=== PATIENT | male | born 1975 | race Caucasian/White ===

== ENCOUNTER 2020-03-13 08:00 | Outpatient (CLI) | payer OTHER ==
--- NOTE | 2020-03-13 10:48 | XRAY Report ---
PROCEDURE: Chest 2 View X-Ray INDICATIONS: CHRONIC COUGH TECHNIQUE: 2 view(s) of the chest. COMPARISON: None. FINDINGS: Surgical changes and devices: None. Lungs and pleura: No pleural effusions or pneumothorax. Lungs are clear. Mediastinum: Mediastinal contours are normal. Heart size is normal. Bones and chest wall: No suspicious bony abnormalities. Soft tissues appear unremarkable. IMPRESSION: No acute cardiopulmonary process demonstrated radiographically. Reviewed by: Eduar Purdy MD on 03/13/2020 10:47 AM PDT Approved by: Eduar Purdy MD on 03/13/2020 10:47 AM PDT Station ID: [id number]
[2020-03-13 15:10] LABS: BASOPHILS # (AUTO) 0.1 10^3/uL (0.0-0.1); EOSINOPHILS # (AUTO) 0.2 10^3/uL (0.0-0.7); EOSINOPHILS % (AUTO) 4.2 %; LYMPHOCYTES # (AUTO) 1.5 10^3/uL (1.5-3.5); LYMPHOCYTES % (AUTO) 28.8 %; MEAN CORPUSCULAR HEMOGLOBIN 32.1 pg (27.0-31.0); MEAN CORPUSCULAR VOLUME 97.2 fL (80.0-94.0); MEAN PLATELET VOLUME 10.7 fL (7.4-11.4); MONOCYTES # (AUTO) 0.5 10^3/uL (0.0-1.0); MONOCYTES % (AUTO) 10.2 %; NEUTROPHILS # (AUTO) 2.9 10^3/uL (1.5-6.6); NEUTROPHILS % (AUTO) 55.6 %; PLT - PLATELET COUNT 267 10^3/uL (130-450); RED BLOOD COUNT 4.68 10^6/uL (4.70-6.10); RED CELL DISTRIBUTION WIDTH 13.8 % (12.0-15.0); WHITE BLOOD COUNT 5.2 x10^3/uL (4.8-10.8)
== END 2020-03-13 23:59 | disposition home or self-care (01) ==
LOC: DI.S 08:00
PROVIDERS: ATTEND Physician Assistant Medical
DX: Z01.84 Encounter for antibody response examination (principal); R05 Cough
CPT/HCPCS: 36415; 71046; 85025; 86769

== ENCOUNTER 2020-05-07 12:26 | Outpatient (CLI) | payer OTHER ==
[2020-05-07 16:29] LABS: CHOL/HDL RATIO 3.3 (<5.0); CHOLESTEROL 187 mg/dL; HDL CHOLESTEROL 56 mg/dL; LDL CHOLESTEROL,CALCULATED 88 mg/dL; LDL/HDL RATIO 1.6 (<3.6); VLDL CHOLESTEROL 43 mg/dL
== END 2020-05-07 12:27 | disposition home or self-care (01) ==
LOC: LAB.S 12:26
PROVIDERS: ATTEND Physician Assistant
DX: E03.9 Hypothyroidism, unspecified (principal); E78.5 Hyperlipidemia, unspecified
CPT/HCPCS: 36415; 80061; 83721; 84443

== ENCOUNTER 2021-04-11 10:18 | Outpatient (CLI) | payer OTHER ==
[2021-04-11 15:16] LABS: ALBUMIN 4.7 g/dL (3.2-5.5); ALBUMIN/GLOBULIN RATIO 1.5 (1.0-2.2); BILIRUBIN,TOTAL 0.9 mg/dL (0.2-1.0); CALCIUM 9.6 mg/dL (8.5-10.3); POTASSIUM 4.3 mmol/L (3.5-5.0); TOTAL PROTEIN 7.8 g/dL (6.7-8.2)
== END 2021-04-11 23:59 | disposition home or self-care (01) ==
LOC: LAB.S 10:18
DX: E03.9 Hypothyroidism, unspecified (principal); Z79.899 Other long term (current) drug therapy; M94.0 Chondrocostal junction syndrome [Tietze]; E78.5 Hyperlipidemia, unspecified; R05 Cough
CPT/HCPCS: 36415; 80053

== ENCOUNTER 2022-07-02 13:32 | Outpatient (CLI) | payer OTHER ==
[2022-07-02 20:10] LABS: ALBUMIN 4.3 g/dL (3.2-5.5); ALBUMIN/GLOBULIN RATIO 1.5 (1.0-2.2); ALKALINE PHOSPHATASE 42 IU/L (42-121); ALT ALANINE AMINOTRANSFERASE 31 IU/L (10-60); AST ASPARTATE AMINOTRANSFERASE 19 IU/L (10-42); BILIRUBIN,TOTAL 0.6 mg/dL (0.2-1.0); BUN - BLOOD UREA NITROGEN 15 mg/dL (6-20); CALCIUM 9.4 mg/dL (8.5-10.3); CARBON DIOXIDE - CO2 28 mmol/L (21-32); CHLORIDE 103 mmol/L (101-111); CHOL/HDL RATIO 3.4 (<5.0); CHOLESTEROL 166 mg/dL; CREATININE 1.1 mg/dL (0.6-1.2); GFR - MDRD 71 (>89); GLUCOSE 89 mg/dL (70-100); HDL CHOLESTEROL 49 mg/dL; LDL CHOLESTEROL,CALCULATED 101 mg/dL; LDL/HDL RATIO 2.1 (<3.6); POTASSIUM 4.2 mmol/L (3.5-5.0); SODIUM 139 mmol/L (135-145); TOTAL PROTEIN 7.2 g/dL (6.7-8.2); TRIGLYCERIDES 78 mg/dL; VLDL CHOLESTEROL 16 mg/dL
[2022-07-02 20:19] LABS: THYROID STIMULATING HORMONE 0.86 uIU/mL (0.34-5.60)
== END 2022-07-02 13:33 | disposition home or self-care (01) ==
LOC: LAB.S 13:32
PROVIDERS: ATTEND Registered Nurse
DX: E78.5 Hyperlipidemia, unspecified (principal); E03.9 Hypothyroidism, unspecified; Z79.899 Other long term (current) drug therapy
CPT/HCPCS: 36415; 80053; 80061; 83721; 84443

== ENCOUNTER 2022-08-07 13:52 | Outpatient (CLI) | payer OTHER ==
--- NOTE | 2022-08-07 13:09 | XRAY Report ---
PROCEDURE: Hand 3 View LT INDICATIONS: LEFT HAND LACERATION TECHNIQUE: 3 views of the hand(s) acquired. COMPARISON: None FINDINGS: Bones: No fractures or dislocations. No suspicious bony lesions. Soft tissues: No suspicious soft tissue calcifications. No radiopaque foreign body. No soft tissue g as. IMPRESSION: No evidence acute bony abnormality of the left hand. No radiopaque foreign body. Reviewed by: Casey Iraheta MD on 08/07/2022 1:08 PM [facility] Approved by: Casey Iraheta MD on 08/07/2022 1:08 PM [facility] Station ID: [id number]
== END 2022-08-07 13:53 | disposition home or self-care (01) ==
LOC: DI.WOS 13:52
PROVIDERS: ATTEND Orthopaedic Surgery
DX: S61.213A Laceration without foreign body of left middle finger without damage to nail, initial encounter (principal); S61.211A Laceration without foreign body of left index finger without damage to nail, initial encounter

== ENCOUNTER 2024-03-05 11:20 | Outpatient (CLI) | payer OTHER | END 2024-03-05 23:59 | disposition critical access hospital (66) | LOC: EMS 11:20 | DX: S91.311A Laceration without foreign body, right foot, initial encounter (principal); S90.812A Abrasion, left foot, initial encounter; V23.49XA Other motorcycle driver injured in collision with car, pick-up truck or van in traffic accident, initial encounter; Y92.414 Local residential or business street as the place of occurrence of the external cause | CPT/HCPCS: A0425; A0429 ==

== ENCOUNTER 2024-03-05 12:03 | Day surgery (SDC) | payer OTHER ==
[2024-03-05] MEDS ORDERED: LIDOCAINE 1%-EPI 1:100000 20 ML MDV SUBQ STA (12:08)
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
[2024-03-05 12:15] LABS: BASOPHILS # (AUTO) 0.1 10^3/uL (0.0-0.1); BASOPHILS % (AUTO) 0.6 %; EOSINOPHILS # (AUTO) 0.2 10^3/uL (0.0-0.7); EOSINOPHILS % (AUTO) 2.4 %; HCT - HEMATOCRIT 38.9 % (42.0-52.0); HGB - HEMOGLOBIN 13.4 g/dL (14.0-18.0); LYMPHOCYTES # (AUTO) 1.8 10^3/uL (1.5-3.5); LYMPHOCYTES % (AUTO) 20.3 %; MEAN CORPUSCULAR HEMOGLOBIN 32.8 pg (27.0-31.0); MEAN CORPUSCULAR HGB CONC 34.4 g/dL (32.0-36.0); MEAN CORPUSCULAR VOLUME 95.3 fL (80.0-94.0); MEAN PLATELET VOLUME 9.9 fL (7.4-11.4); MONOCYTES # (AUTO) 0.6 10^3/uL (0.0-1.0); MONOCYTES % (AUTO) 6.6 %; NEUTROPHILS # (AUTO) 6.2 10^3/uL (1.5-6.6); NEUTROPHILS % (AUTO) 69.5 %; PLT - PLATELET COUNT 247 10^3/uL (130-450); RED BLOOD COUNT 4.08 10^6/uL (4.70-6.10); RED CELL DISTRIBUTION WIDTH 13.2 % (12.0-15.0); WHITE BLOOD COUNT 8.9 x10^3/uL (4.8-10.8)
[2024-03-05] MEDS: ceFAZolin 1 GM VIAL IVP STA (12:24)
[2024-03-05 12:33] LABS: INR 1.1 (0.8-1.2); PT - PROTHROMBIN TIME 11.7 secs (9.9-12.6)
[2024-03-05 12:36] LABS: ALBUMIN 4.5 g/dL (3.2-5.5); ALBUMIN/GLOBULIN RATIO 1.8 (1.0-2.2); BILIRUBIN,TOTAL 0.6 mg/dL (0.2-1.0); CALCIUM 9.5 mg/dL (8.5-10.3); CREATININE 1.3 mg/dL (0.6-1.3)
--- NOTE | 2024-03-05 12:42 | XRAY Report ---
PROCEDURE: Foot 3+V BL INDICATIONS: B foot inj TECHNIQUE: 3 views of the foot were acquired. COMPARISON: None. FINDINGS: Bones: Oblique fracture involving right first metatarsal shaft is seen with slight displacement at fr acture site. No gross acute left foot fracture or dislocation is noted. No suspicious bony lesions. Soft tissues: Soft tissue laceration involving plantar and medial aspect of right midfoot is seen. No radiopaque foreign bodies. IMPRESSION: 1. Laceration involving plantar and medial aspect of right midfoot with subcutaneous emphysema. No ra diopaque foreign bodies. 2. Acute slightly displaced fracture involving right first metatarsal shaft. 3. No gross acute left foot fracture or dislocation. Reviewed by: Francisco Dyer MD on 03/05/2024 12:40 PM PDT Approved by: Francisco Dyer MD on 03/05/2024 12:40 PM PDT Station ID: [id number]
[2024-03-05] MEDS: HYDROmorphone 1 MG/ML CARPUJECT IVP STA (13:00)
[2024-03-05] MEDS: KETOROLAC 15 MG/ML VIAL IVP STA ×2 (13:00→15:35)
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
--- NOTE | 2024-03-05 13:25 | ANESTHESIA ---
Pre-Anesthesia VS, & Labs - Diagnosis right foot injury - Procedure right foot i/d , laceration repair Vital Signs: Temp Pulse Resp BP Pulse Ox O2 Flow Rate 36.6 C 98 16 138/98 H 100 03/05/24 12:11 03/05/24 12:11 03/05/24 12:11 03/05/24 12:11 03/05/24 12:11 Height: 6 ft Weight (kg): 96.8 kg Body Mass Index: 28.9 BMI Classification: Overweight - NPO Last Fluid Intake: 599 Last Food Intake: 0600 - Lab Results Current Lab Results: Laboratory Tests 03/05/24 12:22: PT 11.7, INR 1.1 03/05/24 12:09: Sodium 135, Potassium 4.0, Chloride 104, Carbon Dioxide 24, Anion Gap 7.0, BUN 18, Creatinine 1.3, Estimated GFR (MDRD) 59 L, Glucose 113 H, Calcium 9.5, Total Bilirubin 0.6, AST 115 H, ALT 115 H, Alkaline Phosphatase 48, Total Protein 7.0, Albumin 4.5, Globulin 2.5, Albumin/Globulin Ratio 1.8 03/05/24 12:09: WBC 8.9, RBC 4.08 L, Hgb 13.4 L, Hct 38.9 L, MCV 95.3 H, MCH 32.8 H, MCHC 34.4, RDW 13.2, Plt Count 247, MPV 9.9, Neut # (Auto) 6.2, Lymph # (Auto) 1.8, [place] # (Auto) 0.6, Eos # (Auto) 0.2, Baso # (Auto) 0.1, Absolute Nucleated RBC 0.00, Nucleated RBC % 0.0 Fish Bones: 03/05/24 12:09 03/05/24 12:09 Home Medications and Allergies Home Medications: Ambulatory Orders No Known Home Medications 03/05/24 No Known Home Medications 03/05/24 Allergies/Adverse Reactions: Allergies Allergy/AdvReac Type Severity Reaction Status Date / Time No Known Drug Allergies Allergy Verified 03/05/24 12:10 Anes History & Medical History - Anesthetic History Anesthesia Complications: reports: No previous complications Family history of Anesthesia Complications: Denies - Medical History Cardiovascular: reports: None Pulmonary: reports: None Gastrointestinal: reports: None Endocrine/Autoimmune: reports: HyPOthyroidism Smoking Status: Never smoker Psychosocial: reports: No issues indicated (social drinker) Exam General: Alert, Oriented x3 Dental: WNL Mouth Openin Fingerbreadth Neck Mobility: Normal Mallampati classification: II Respiratory: Lungs clear Cardiovascular: Regular rate Plan Anesthesia Type: General Consent for Procedure(s) Verified and Reviewed: Yes Code Status: Attempt Resuscitation ASA classification: 1-Healthy patient Is this case an emergency?: Yes
[2024-03-05] MEDS ORDERED: ATROPINE ABBOJECT 1 MG/10 ML SYRINGE IVP PRN ×2 (13:26→15:14)
[2024-03-05] MEDS ORDERED: NALOXONE 0.4 MG/ML VIAL IVP PRN ×2 (13:26→15:14)
[2024-03-05] MEDS ORDERED: MORPHINE 2 MG/ML CARPUJECT IVP PRN ×2 (13:26→15:14)
[2024-03-05] MEDS ORDERED: fentaNYL 100 MCG/2 ML VIAL IVP PRN ×2 (13:26→15:14)
[2024-03-05] MEDS ORDERED: METOCLOPRAMIDE 10 MG/2 ML VIAL IVP PRN ×2 (13:26→15:14)
[2024-03-05] MEDS ORDERED: HYDROmorphone 0.5 MG/0.5 ML SYRINGE IVP PRN ×2 (13:26→15:14)
[2024-03-05] MEDS ORDERED: ONDANSETRON 4 MG/2 ML VIAL IVP PRN ×3 (13:26→15:14)
[2024-03-05] MEDS ORDERED: ePHEDrine 50 MG/ML VIAL IVP PRN ×2 (13:26→15:14)
[2024-03-05] MEDS ORDERED: MIDAZOLAM 2 MG/2 ML VIAL ONE (13:37)
[2024-03-05] MEDS ORDERED: PROPOFOL 200 MG/20 ML VIAL IVP ONE (13:37)
[2024-03-05] MEDS ORDERED: LIDOCAINE-PF 2% 10 ML AMP SUBQ ONE (13:37)
[2024-03-05] MEDS ORDERED: fentaNYL 100 MCG/2 ML VIAL ONE (13:38)
[2024-03-05] MEDS ORDERED: LACTATED RINGERS 1,000 ML IV SCH ×2 (14:00→15:14)
[2024-03-05] MEDS ORDERED: DEXAMETHASONE 4 MG/ML VIAL ONE (14:33)
[2024-03-05] MEDS ORDERED: ONDANSETRON 4 MG/2 ML VIAL ONE (14:33)
[2024-03-05] MEDS ORDERED: HYDROmorphone 1 MG/ML CARPUJECT ONE (14:36)
[2024-03-05] MEDS ORDERED: oxyCODONE 5 MG TABLET PO PRN (15:02)
[2024-03-05] MEDS ORDERED: HYDROcod/ACETAM 5/325 MG TABLET PO PRN (15:02)
[2024-03-05] MEDS: LACTATED RINGERS 1,000 ML IV ONE ×2 (15:02→15:37)
[2024-03-05] MEDS: KETOROLAC 15 MG/ML VIAL ONE (15:36)
--- NOTE | 2024-03-05 15:49 | OPERATIVE REPORT ---
Operative Report - General Procedure Date: 03/05/24 Planned Procedure: Irrigation and debridement of open right first metatarsal fracture; irrigation and primary closure of right dorsal foot laceration; irrigation and primary closure of left lateral ankle laceration Pre-Op Diagnosis: Right open first metatarsal fracture; multiple lacerations to right foot an Procedure Performed: Irrigation and debridement of right first metatarsal fracture; irrigation and primary closure of right right dorsal foot laceration and left lateral ankle laceration Post Op Diagnosis: same - Procedure Note Primary Surgeon: Leonides Bender MD Anesthesia Provider: Canelo Foster CRNA Anesthesia Technique: General LMA IV Fluids (mL): 700 Estimated Blood Loss (mL): 100 Complications: None - Other Other Information/Narrative: Description of procedure: Patient was taken the operating room from the emergency room where he was placed under general anesthetic in supine position without complications. We used Betadine scrub brushes to perform the prep to his right foot wounds and his left lateral ankle laceration. We then have proceeded to wash his right foot and left ankle and then draped both lower extremities free to perform our irrigation debridement. Using a pulse lavage and a total of 4000 and mL of irrigation solution we irrigated and debrided the right foot wounds. We then explored the larger plantar wound and saw that this was essentially a degloving injury to the his plantar aspect of the foot. Did not appear as if any deep structures such as tendons or nerves were lacerated with this injury. The U-shaped flap of the plantar aspect appear viable throughout the irrigation and. We closed the dorsal foot laceration lateral ankle laceration with several interrupted stitches of 3-0 nylon. We then loosely reattach the U-shaped flap on the plantar aspect of his foot to minimize any exposure of the deeper tissues. We did close this flap wound over half inch Kenyon drain. We then applied Xeroform gauze to all the wounds and fluffs as well as Curlex and Robert wrap to hold the dressings in place on both the right and left side. Estimated blood loss 100 mL Replacement: 1000 cc crystalloid Intraoperative complications: None Plan: Patient be discharged when stable from recovery room. May go weightbearing on the right side on his heel as tolerated. Weightbearing as to on the left side as well. Crutches as needed. I will arrange for some oxycodone 5 mg p.o. every 4-6 hours as needed pain #20. Also ordered Keflex 500 mg p.o. q. ID for 7 days. He will follow-up with us in our orthopedic clinic on Thursday for a wound check removal of his Sarah drain and possibly arrange for a cam walker depending on how much pain he has at his metatarsal fracture site.
[2024-03-05] MEDS: HYDROcod/ACETAM 10 MG/325 MG TABLET PO PRN (17:12)
[2024-03-05 17:54] VITALS: BP 122/75; O2SAT 96
--- NOTE | 2024-03-05 20:12 | ANESTHESIA POST OP EVALUATION ---
Anesthesia Post Eval - Post Anesthesia Eval Vitals: Last Vital Signs Temp 97.3 C H 03/05/24 17:06 Pulse 115 H 03/05/24 17:41 Resp 18 03/05/24 17:06 BP 122/75 03/05/24 17:41 Pulse Ox 96 03/05/24 17:41 O2 Flow Rate CV Function Including HR & BP: Stable Pain Control: Satisfactory Nausea & Vomiting: Negative Mental Status: Baseline Respiratory Status: Airway Patent Hydration Status: Satisfactory Anesthesia Complications: None
== END 2024-03-05 17:50 | disposition home or self-care (01) ==
LOC: ED 12:03 → SDS 12:45 → MS3 17:07 → SDS 17:50
PROVIDERS: ATTEND Orthopaedic Surgery
DX: S92.314 Nondisplaced fracture of first metatarsal bone, right foot (principal); S91.011A Laceration without foreign body, right ankle, initial encounter; S91.012A Laceration without foreign body, left ankle, initial encounter; V23.49XA Other motorcycle driver injured in collision with car, pick-up truck or van in traffic accident, initial encounter; Y92.410 Unspecified street and highway as the place of occurrence of the external cause
CPT/HCPCS: 12045; 36415; 73630; 80053; 85025; 85610; 96374; 99285; A9270; J1170; J7120

== ENCOUNTER 2024-04-06 09:09 | Outpatient (CLI) | payer OTHER ==
--- NOTE | 2024-04-06 13:18 | XRAY Report ---
PROCEDURE: Ankle 3+V LT INDICATIONS: LACERATION WITHOUT FOREIGN BODY LT ANKLE TECHNIQUE: 3 views of the ankle were acquired. COMPARISON: Bilateral foot radiograph dated 03/05/2024. FINDINGS: Bones: No fractures or dislocations. Ankle mortise is normally aligned. No suspicious bony lesions . Soft tissues: Mild lateral ankle soft tissue swelling. No radiopaque foreign bodies. No tibiotalar j oint effusion. Achilles tendon appears normal. IMPRESSION: No acute ankle fracture or dislocation. Mild lateral ankle soft tissue swelling. No radiopaque foreig n bodies. Reviewed by: Francisco Washburn MD on 04/06/2024 1:17 PM PDT Approved by: Francisco Washburn MD on 04/06/2024 1:17 PM PDT Station ID: [id number]
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
== END 2024-04-06 09:10 | disposition home or self-care (01) ==
LOC: DI.S 09:09
PROVIDERS: ATTEND Orthopaedic Surgery
DX: S92.311B Displaced fracture of first metatarsal bone, right foot, initial encounter for open fracture (principal); S92.311D Displaced fracture of first metatarsal bone, right foot, subsequent encounter for fracture with routine healing; S91.012D Laceration without foreign body, left ankle, subsequent encounter